=== PATIENT | male | born 1980 | race African-American/Black ===

== ENCOUNTER 2023-04-11 21:31 | Emergency (ER) | payer MEDICAID, SELFPAY ==
[2023-04-11] VITALS (28 sets, daily range): BP systolic 54–117; BP diastolic 34–74; PULSE 66–103; RESP 13–24; TEMP 36.4; O2SAT 97–100
--- NOTE | 2023-04-11 21:30 | RT.EKG_ITS ---
APPROVED REPORT Exam: Resting ECG Reason for Exam: intermittent unresponsiveness Patient Location: E HR:74 bpm ECG Measurements Heart Rate 74 AXIS NE 138 P 78 QRSd 88 QRS 38 QT 368 T 29 QTc 407 Conclusion Sinus rhythm...normal P axis, V-rate 60- 99 sinus rhythm, normal axis, consider short p wave/delta wave
--- NOTE | 2023-04-11 21:30 | DI.RAD_ITS ---
Exam(s) XR CHEST 2V PA LATERAL EXAM: XR CHEST 2V PA LATERAL CLINICAL HISTORY: LOC TECHNIQUE: 2D digital imaging was performed of the chest. Two images were obtained. PA and lateral views were obtained. COMPARISON: No exams were available for comparison FINDINGS: MEDIASTINUM: Normal. HEART: Normal. PULMONARY VASCULATURE: Normal. LUNGS: Clear. PLEURAL SPACE: No pleural effusion or pneumothorax. BONE:Within normal limits for the patient's age. OTHER FINDINGS:Normal. IMPRESSION: No acute pulmonary findings. DATA REPOSITORY: RADIATION DOSE DELIVERED:
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
--- NOTE | 2023-04-11 21:44 | W.ED.GENAD ---
Discharge Plan Disposition Patient Disposition: Home Discharge Details Clinical Impression: Syncope Primary Care Provider: None,None ED Provider: Guevara Pulido Home Meds and New Rx's Prescriptions: Continued levetiracetam [Keppra] 500 mg Tablet 500 mg PO BID Discharge Instructions Instructions: Syncope (ED) Discharge Data Discharge Date/Time-TO BE ENTERED AT DEPARTURE: 04/12/23 01:17 Discharge Physician: Guevara Pulido Medical Decision Making <BUTCH Mcgovern - Last Filed: 04/12/23 22:29> The patient is a pleasant 42-year-old male brought in via EMS after having episode of altered level of consciousness that was witnessed by friends. He reports that prior to this event, he had been drinking and smoking marijuana with friends for few hours. States that he then became lightheaded and lowered himself to the ground. He believes that once he laid on the ground purposefully, he lost consciousness. He reports he feels intoxicated. Describes a history of seizure disorder and has not been on any antiseizure medications. He denies any chest pain. No shortness of breath. He does endorse headache. States he has had ALDANA x 1 hour, unclear what the onset was. Was feeling well prior to taking in the ETOH and marijuana. Unclear if exposed to other substances. On exam, patient appears intoxicated. He is sitting up, breathing comfortably, no acute distress. His lungs are clear, normal cardiac exam. Abdomen benign. Moving all extremities and following directions. No head trauma, head pain with palpation, neck pain, c-spine tenderness. No CP with palpation. 5/5 strength in all extremities. CN intact. Concerned for intoxication, possible seizure (although no seizure activity witnessed by bystanders), ICH, ACS vs. other. ECG reviewed by Dr. Chamorro, no acute ischemic pathology noted. Imaging reviewed by radiologist. FINDINGS: Lungs: There is no evidence of focal pulmonary consolidation. The pulmonary vasculature is normal. Pleural spaces: There is no evidence of pneumothorax. There are no pleural effusions present. Heart/Mediastinum: The cardiac silhouette is within normal limits. The mediastinum is normal. Bones/joints: The spine, sternum, ribs, and pectoral girdles show no evidence of acute abnormality Other findings: There are no soft tissue masses or calcifications. IMPRESSION: No active cardiopulmonary disease. FINDINGS: Brain: There is no significant cerebral atrophy present. There is no significant white matter disease present. There is no evidence of intracranial hemorrhage. There is no evidence of acute intracranial injury or other pathologic process. There is no evidence of an acute ischemic event. No evidence of an acute intracranial abnormality. Cerebral ventricles: The ventricular system is normal in caliber and are seen in the midline. Paranasal sinuses: There is no evidence of fluid levels, mucoperiosteal thickening, or opacification to suggest acute or chronic sinusitis. Mastoid air cells: The mastoid aircells are normal. Orbital cavities: The orbits are normal without evidence of fracture. There is no evidence of retro-bulbar hemorrhage. There is no evidence of globe or lens injury. Bones/joints: The bony cranium shows no evidence of injury or other acute pathologic processes. Soft tissues: The extracranial soft tissues are normal. IMPRESSION: No evidence of an acute intracranial abnormality. Patient now reports that the episode was associated with no food intake today with beer and marijuana intake. Feels significantly improved after eating. He is new to the area, would like PCP. Will also refill Keppra as he does not have access to refills at this time. Will repeat troponin. Friends/family with him, he is able to be d/c'ed with them after repeat troponin. At the end of my shift, care transitioned to Dr. Ibarra with repeat troponin and reassessment pending. Patient who decides to leave before the troponin was back he understands the risk and will leave now before the second troponin the patient was diagnosed the likelihood he has acute coronary syndrome is 0 <Guevara Pulido MD - Last Filed: 04/12/23 01:13> The patient is a pleasant 42-year-old male brought in via EMS after having episode of altered level of consciousness that was witnessed by friends. He reports that prior to this event, he had been drinking and smoking marijuana with friends for few hours. States that he then became lightheaded and lowered himself to the ground. He believes that once he laid on the ground purposefully, he lost consciousness. He reports he feels intoxicated. Describes a history of seizure disorder and has not been on any antiseizure medications. He denies any chest pain. No shortness of breath. He does endorse headache. States he has had ALDANA x 1 hour, unclear what the onset was. Was feeling well prior to taking in the ETOH and marijuana. Unclear if exposed to other substances. On exam, patient appears intoxicated. He is sitting up, breathing comfortably, no acute distress. His lungs are clear, normal cardiac exam. Abdomen benign. Moving all extremities and following directions. No head trauma, head pain with palpation, neck pain, c-spine tenderness. No CP with palpation. 5/5 strength in all extremities. CN intact. Concerned for intoxication, possible seizure (although no seizure activity witnessed by bystanders), ICH, ACS vs. other. ECG reviewed by Dr. Chamorro, no acute ischemic pathology noted. Patient now reports that the episode was associated with no food intake today with beer and marijuana intake. Feels significantly improved after eating. He is new to the area, would like PCP. Will also refill Keppra as he does not have access to refills at this time. Will repeat troponin. Friends/family with him, he is able to be d/c'ed with them after repeat troponin. At the end of my shift, care transitioned to Dr. Ibarra with repeat troponin and reassessment pending. Patient who decides to leave before the troponin was back he understands the risk and will leave now before the second troponin the patient was diagnosed the likelihood he has acute coronary syndrome is 0 Medical Records Medical records reviewed: Yes I reviewed the patient's medical records. Lab Data Lab results reviewed: Yes I reviewed the patient's lab results. HPI <BUTCH Mcgovern - Last Filed: 04/12/23 22:29> General Date/Time Provider Initiated Documentation: 04/11/23 21:45. Limitations to Documentation: no limitations. Information obtained by: patient, EMS and RN notes reviewed. History of Present Illness 42 year old M presents to the emergency department with the chief complaint of After consuming ETOH and marijuana, became lightheaded, possible syncope, Quality is described as other (was not having pain, lowered himself to the ground, no injury), and is localized to the head (lightheaded). Patient started experiencing this minute(s) and it has been now resolved. No relieving factors improve symptom(s), Other factors that worsen symptoms (ETOH and marijuana) . Patient notes headaches (states this began during time of ETOH consumption) and syncope; denies confusion (lightheaded but clear about what occurred, no confusion), chest pain, cough, diaphoresis, fever/chills, loss of appetite (currently hungry), malaise, nausea/vomiting, rash, seizure (hx of seizure disorder, denies seizure today, no witness activity or post ictal period) and shortness of breath. Patient did receive the following treatments prior to arrival, none Related Data Home Medications Medication Instructions Recorded Confirmed levetiracetam 500 mg tablet 500 mg PO BID 04/11/23 04/11/23 (Keppra) Allergies Allergy/AdvReac Type Severity Reaction Status Date / Time No Known Allergies Allergy Unverified 04/11/23 22:12 Review of Systems <BUTCH Mcgovern - Last Filed: 04/12/23 22:29> Constitutional Constitutional: Reports as per HPI, Denies chills, Reports fatigue, Denies fever(s), Denies frequent falls and Reports headache(s) Eyes Eyes: Reports as per HPI, Denies blurry vision and Denies change in vision ENT Ears, Nose, Mouth, and Throat: Denies vertigo, Reports headache(s) and Denies neck pain Cardiovascular Cardiovascular: Reports as per HPI, Denies chest pain, Denies radiating jaw, neck or arm pain and Denies dyspnea Respiratory Respiratory: Reports as per HPI, Denies chest congestion, Denies cough and Denies dyspnea Gastrointestinal Gastrointestinal: Reports as per HPI, Denies abdominal pain, Denies nausea and Denies vomiting Genitourinary Genitourinary: Reports system reviewed and no additional complaints, except as documented (denies change in urinary habits) Musculoskeletal Musculoskeletal: Reports as per HPI, Denies back pain, Denies myalgias, Denies muscle cramps, Denies neck pain and Denies numbness Integumentary/Breasts Skin/Breast: Reports as per HPI and Denies rash Neurologic Neurologic: Reports as per HPI, Denies abnormal movements, Denies abnormal speech, Denies confusion, Denies vertigo, Denies frequent falls, Reports headache(s), Denies localized weakness, Denies numbness and Denies sensory deficit Psychiatric Psychiatric: Denies confusion Endocrine Endocrine: Reports fatigue PFSH <BUTCH Mcgovern - Last Filed: 04/12/23 22:29> All Active Problems (Updated 04/12/23 @ 01:12 by Guevara Pulido MD) Syncope (Chronic) Social History Smoking/Tobacco Use Status: Current-Occasional Smoking risk assessment performed?: Yes Exam <BUTCH Mcgovern - Last Filed: 04/12/23 22:29> Const General: cooperative, comfortable, no acute distress, well developed, disheveled and intoxicated appearing Nutritional Appearance: average body habitus and well nourished Orientation: alert, awake and oriented x3 [facility] Head: normal to inspection, no palpable skull fracture, normocephalic and atraumatic Ears: hearing grossly normal bilaterally, external ears normal and TM's normal bilaterally General nose exam: external nose normal Mouth: oral mucosae normal and moist mucous membranes Throat: posterior oropharynx normal Eyes General: appearance normal, both eyes and all related structures Alignment and Position: alignment normal Periorbital: periorbital findings normal Eyelids: eyelids normal Sclera: sclerae normal Cornea: corneas normal Pupils: PERRL EOM: EOM intact bilaterally Neck Neck: normal visual inspection, full ROM, no lymphadenopathy and no meningeal signs Resp Effort & Inspection: normal respiratory effort, able to speak in complete sentences and no respiratory distress Auscultation: clear to auscultation bilaterally, no rales, no rhonchi and no wheezes Cardio Rate: regular rate Rhythm: regular rhythm Heart Sounds: S1 normal and S2 normal GI Inspection: normal to inspection and non-distended Palpation: soft, no hepatosplenomegaly, not firm, no guarding, not rigid and nontender Percussion: normal to percussion Auscultation: normal bowel sounds Back/Spine/Pelvis Cervical Spine: normal cervical lordosis and cervical ROM normal Skin General skin exam: no rashes or lesions noted Neuro General: patient alert, patient awake and patient oriented x3 (appears intoxicated but is answering appropriately) Cranial Nerves: CN's II-XI intact bilaterally Cognition: normal cognition Speech: speech normal Gait: normal gait Motor: muscle tone normal throughout, strength 5/5 throughout, no pronator drift, no movement abnormalities noted and no fasciculations Sensory Exam: no sensory deficits noted Coordination: [id number] test normal and [id number] test normal Extrem General: normal to inspection, capillary refill normal, no pedal edema and no calf tenderness Psych Appearance: grossly normal and well kempt Mental Status: mental status grossly normal Speech and Movement: speech and movement normal Sign Out <BUTCH Mcgovern - Last Filed: 04/12/23 22:29> Sign Out Data: Sign Out Comment: care transitioned to Dr. Ibarra with repeat troponin and reassessment pending. Last updated by Haylee Carr PA at 04/11/23 23:56
[2023-04-11 21:52] LABS: Abs Immature Grans 0.02 10^3/uL (0.0-0.06); Absolute Basophil Count 0.04 10^3/uL (0.0-0.2); Absolute Eosinophil Count 0.25 10^3/uL (0.0-0.7); Absolute Lymphocyte Count 4.24 10^3/uL (1.2-3.4); Absolute Monocyte Count 1.21 10^3/uL (0.1-0.8); Absolute Neutrophil Count 1.93 10^3/uL (1.2-6.7); Basophils % 0.5; Eosinophils % 3.3; HCT 45.3 % (40.0-50.0); HGB 15.5 g/dL (13.5-17.5); Immature Grans % 0.3; Lymphocytes % 55.1; MCH 33.3 pg (27.0-33.0); MCHC 34.2 % (32.0-36.0); MCV 97 fL (80-95); MPV 10.3 fL (8.0-11.0); Monocytes % 15.7; Neutrophils % 25.1; Platelet Count 194 10^3/uL (130-400); RBC 4.65 10^6/uL (4.36-5.78); RDW 12.1 % (11.8-14.1); RDW-SD 43.7 fL; WBC 7.69 10^3/uL (4.4-10.8)
[2023-04-11] MEDS: Lactated Ringers 1,000 ML 1000 ML IV (22:05)
[2023-04-11 22:10] LABS: Ammonia 28 umol/L (11-32)
[2023-04-11 22:22] LABS: ALT 110 U/L (16-63); AST 63 U/L (15-37); Albumin 3.9 g/dL (3.4-5.0); Alkaline Phosphatase 74 U/L (46-116); Anion Gap 12.5 mmol/L (3-11); BUN 5 mg/dL (7-18); Bilirubin, Total 0.3 mg/dL (0.2-1.0); CO2 26.5 mmol/L (21.0-32.0); CREATININE 1.2 mg/dL (0.70-1.30); Calcium 8.7 mg/dL (8.5-10.1); Chloride 99 mmol/L (98-107); ETHANOL BLOOD 98.9 mg/dL (<10); Estimated GFR 76.48 (mL/min/1.73m2); Glucose 155 mg/dL (74-106); Magnesium 1.6 mg/dL (1.8-2.4); Potassium 3.1 mmol/L (3.5-5.1); Sodium 138 mmol/L (136-145); TSH (W/Ref FT4) 0.69 uIU/mL (0.36-3.74); Total Protein 7.6 g/dL (6.4-8.2); Troponin I < 50 ng/L (<or=60)
--- NOTE | 2023-04-11 22:25 | DI.VRAD_ITS ---
PROCEDURE INFORMATION: Exam: XR Chest Exam date and time: 04/11/2023 10:00 PM Age: 42 years old Clinical indication: Other: Loc TECHNIQUE: Imaging protocol: Radiologic exam of the chest. Views: 2 views. COMPARISON: No relevant prior studies available. FINDINGS: Lungs: There is no evidence of focal pulmonary consolidation. The pulmonary vasculature is normal. Pleural spaces: There is no evidence of pneumothorax. There are no pleural effusions present. Heart/Mediastinum: The cardiac silhouette is within normal limits. The mediastinum is normal. Bones/joints: The spine, sternum, ribs, and pectoral girdles show no evidence of acute abnormality Other findings: There are no soft tissue masses or calcifications. IMPRESSION: No active cardiopulmonary disease. Dictated and Authenticated by: Stas Tamayo MD. Ordering:JODIE Leach MD
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
[2023-04-11] MEDS: POTASSIUM CHLORIDE 10 MEQ/100 ML BAG 100 MEQ IVPB (22:30)
[2023-04-11] MEDS: MAGNESIUM SULFATE 1 GM/100 ML BAG IVPB (22:30)
[2023-04-11] MEDS: Potassium Chloride 20 MEQ TABCR 40 MEQ PO (22:39)
[2023-04-11] MEDS: levETIRAcetam 500 MG TAB PO (22:45)
[2023-04-11 23:50] LABS: Bilirubin Negative (Negative); Blood Negative (Negative); Clarity Clear (Clear); Glucose Negative (Negative); Ketones Negative (Negative); Leukocyte Esterase Negative (Negative); Nitrite Negative (Negative); Urobilinogen 0.2 mg/dL (Up to 0.2)
[2023-04-12 00:05] LABS: *AMPHETAMINES SCREEN URINE Negative (Negative); *BARBITURATES SCREEN URINE Negative (Negative); *BENZODIAZEPINES SCREEN URINE Negative (Negative); Cannabinoids THC Positive (Negative); Cocaine Screen,Urine Negative (Negative); METHADONE URINE SCREEN Negative (Negative); OPIATES URINE SCREEN Negative (Negative)
[2023-04-12 00:08] LABS: Tricyclic Antidepressants Negative (Negative)
[2023-04-12 01:01] LABS: Troponin I < 50 ng/L (<or=60)
[2023-04-12 01:15] VITALS: BP 111/67; PULSE 89; RESP 16; TEMP 36.4; O2SAT 99
[2023-04-14 13:42] LABS: Hepatitis A Antibody IgM Negative (Negative); Hepatitis B Core Antibody Negative (Negative); Hepatitis B surface Ag Negative (Negative); Hepatitis C Ab w Rflx HCV PCR Reactive (Negative)
[2023-04-16 11:26] LABS: HCV RNA Detection Quantitative 150000 IU/mL (Undetected); HCV RNA Qualitative Detected (Undetected)
== END 2023-04-12 01:17 | disposition home or self-care (01) ==
PROVIDERS: Physician Assistant; Emergency Provider Emergency Medicine Emergency Medical Services
DX: R55 Syncope and collapse (principal); R11.10 Vomiting, unspecified; F10.90 Alcohol use, unspecified, uncomplicated; F12.90 Cannabis use, unspecified, uncomplicated
CPT/HCPCS: 36415; 36416; 80053; 80307; 82962; 86704; 86709; 86803; 87340; 87522; 93005; 96365; 96366; 96368; 99285; 70450; 71046; 80320; 81003; 82140; 83735; 84443; 84484; 85025; 93010; 99284; J3475; J3480

== ENCOUNTER 2023-04-17 12:43 | Emergency (ER) | payer MEDICAID, SELFPAY ==
[2023-04-17] VITALS (37 sets, daily range): BP systolic 103–136; BP diastolic 58–82; PULSE 79–119; RESP 14–31; TEMP 36.7; O2SAT 93–100
--- NOTE | 2023-04-17 13:00 | RT.EKG_ITS ---
APPROVED REPORT Exam: Resting ECG Reason for Exam: ams, syncope? Patient Location: E HR:100 bpm ECG Measurements Heart Rate 100 AXIS VT 119 P 77 QRSd 78 QRS 40 QT 342 T 20 QTc 442 Conclusion Sinus tachycardia...rate> 99 ST elev, probable normal early repol pattern...ST elevation, age<55 sinus tach, normal axis, normal intervals, early repol
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
[2023-04-17] MEDS: Normal Saline 1,000 ML 1000 ML IV (13:10)
[2023-04-17 13:21] LABS: Abs Immature Grans 0.02 10^3/uL (0.0-0.06); Absolute Basophil Count 0.01 10^3/uL (0.0-0.2); Absolute Eosinophil Count 0.04 10^3/uL (0.0-0.7); Absolute Lymphocyte Count 0.62 10^3/uL (1.2-3.4); Absolute Monocyte Count 0.84 10^3/uL (0.1-0.8); Absolute Neutrophil Count 3.27 10^3/uL (1.2-6.7); Basophils % 0.2; Eosinophils % 0.8; HCT 45.7 % (40.0-50.0); HGB 15.5 g/dL (13.5-17.5); Immature Grans % 0.4; Lymphocytes % 12.9; MCH 32.8 pg (27.0-33.0); MCHC 33.9 % (32.0-36.0); MCV 97 fL (80-95); MPV 10.3 fL (8.0-11.0); Monocytes % 17.5; Neutrophils % 68.2; Platelet Count 175 10^3/uL (130-400); RBC 4.73 10^6/uL (4.36-5.78); RDW 12.3 % (11.8-14.1); RDW-SD 44.2 fL
[2023-04-17 13:35] LABS: PTT Activated 25.4 sec (21.5-31.9); Prothrombin Time 10.5 sec (9.3-11.0)
[2023-04-17 13:46] LABS: ALT 110 U/L (16-63); AST 70 U/L (15-37); Alkaline Phosphatase 73 U/L (46-116); Anion Gap 13.5 mmol/L (3-11); BUN 10 mg/dL (7-18); Bilirubin, Total 0.8 mg/dL (0.2-1.0); CO2 23.5 mmol/L (21.0-32.0); CREATININE 1.6 mg/dL (0.70-1.30); Calcium 9.3 mg/dL (8.5-10.1); Chloride 105 mmol/L (98-107); Creatine Kinase 399 U/L (39-308); Estimated GFR 54.15 (mL/min/1.73m2); Glucose 96 mg/dL (74-106); Lipase 11 U/L (16-77); Magnesium 2.8 mg/dL (1.8-2.4); NT-proBNP 18 pg/mL (<300); Potassium 4.1 mmol/L (3.5-5.1); Sodium 142 mmol/L (136-145); TSH (W/Ref FT4) 1.87 uIU/mL (0.36-3.74); Total Protein 7.8 g/dL (6.4-8.2); Troponin I < 50 ng/L (<or=60)
[2023-04-17 13:50] LABS: ETHANOL BLOOD < 3.0 mg/dL (<10)
[2023-04-17] MEDS: Normal Saline - Diluent 50 ML VIAL IJ (14:45)
[2023-04-17] MEDS: Normal Saline Flush 10 ML SYR IVP (14:46)
[2023-04-17] MEDS: Omnipaque 350 MG/ML 100 ML BTL IJ (14:46)
[2023-04-17] MEDS: levETIRAcetam 500 MG TAB 1000 MG PO (16:55)
--- NOTE | 2023-04-17 16:55 | NUR.NOTE ---
Nursing Note: Pt given 2000mg (4 tabs of 500mg) Keppra for home use. Pt given discharge instructions and understands next steps. Care management to arrange ride to [facility].
--- NOTE | 2023-04-17 17:22 | NUR.NOTE ---
Nursing Note: Referral faxed to [facility] Neurology for seizures, 1 week. Referral given to Care Management for needs PCP, seizures in 1 week.
[2023-04-19 10:35] LABS: Levetiracetam <2.0 mcg/mL
== END 2023-04-17 17:18 | disposition home or self-care (01) ==
PROVIDERS: Emergency Provider Emergency Medicine
DX: R55 Syncope and collapse (principal); R56.9 Unspecified convulsions; Z91.148 Patient's other noncompliance with medication regimen for other reason
CPT/HCPCS: 36415; 74177; 80053; 82550; 83690; 93005; 96360; 96361; 99284; 70450; 71260; 80177; 80320; 83735; 83880; 84443; 84484; 85025; 85610; 85730; 93010; J3490